=== PATIENT | male | born 1965 | race Two or more races ===

== ENCOUNTER 2019-12-11 20:29 | Inpatient (IN) | payer MEDICAID ==
[~2019-12-11] VITALS: Ht 162.6 cm; Wt 67.4 kg
[2019-12-11 22:09] LABS: Basophils # (auto) 0.2 10 ^3/uL (0-0.2); Basophils % (auto) 1.2 % (0.0-2.0); Eosinophils # (auto) 0 10 ^3/uL (0-0.8); Eosinophils % (auto) 0.1 % (0.0-7.0); Hematocrit 46.7 % (41.0-53.0); Hemoglobin 16.5 g/dL (13.5-17.5); Lymphocytes # (auto) 1.7 10 ^3/uL (0.4-5.4); Lymphocytes % (auto) 11.1 % (10.0-50.0); Mean Corpuscular Hgb Conc. 35.3 g/dL (32.0-36.0); Mean Corpuscular Volume 87.8 fL (80.0-100.0); Monocytes # (auto) 0.7 10 ^3/uL (0-1.3); Monocytes % (auto) 4.3 % (0.0-12.0); Neutrophils # (auto) 12.8 10 ^3/uL (1.6-8.6); Neutrophils % (auto) 83.3 % (37.0-80.0); Nucleated Red Blood Cells % 0.2 %; Platelet Count (auto) 158 10^3/uL (140-450); Red Blood Cells 5.31 10^6/uL (4.5-5.90); Red Cell Distribution Width 12.9 % (11.8-14.3); White Blood Cell 15.4 10^3/uL (4.4-10.8)
[2019-12-11 22:26] LABS: INR 1.03 (0.9-1.15); Partial Thromboplastin Time 30.1 sec (23.0-31.2)
[2019-12-11 22:29] LABS: Albumin 4.5 g/dL (3.4-5.0); Amylase 88 U/L (25-115); Anion Gap 12 (5-15); BUN/Creatinine Ratio 36.3; Blood Alcohol < 3.0 mg/dL (0-5); Calcium 9.3 mg/dL (8.5-10.1); Carbon Dioxide 20 mmol/L (21-32); Chloride 90 mmol/L (98-107); GFR African American 38 mL/min; GFR Non-African American 31 mL/min; Lipase 125 U/L (73-393); Potassium 5.5 mmol/L (3.5-5.1); Sodium 122 mmol/L (136-145)
[2019-12-11] MEDS ORDERED: PANTOPRAZOLE 40 MG/10 ML VIAL INJ IV ONE (22:30)
[2019-12-11 22:33] LABS: Alanine Aminotransferase 114 U/L (16-61); Alkaline Phosphatase 113 U/L (45-117); Aspartate Aminotransferase 95 U/L (15-37); Bilirubin, Total 3.5 mg/dL (0.2-1.0); Total Protein 9.1 g/dL (6.4-8.2)
[2019-12-11 22:38] LABS: Blood Urea Nitrogen 85 mg/dL (7-18); Glucose 417 mg/dL (74-106)
[2019-12-11] MEDS ORDERED: LIDOCAINE VISCOUS 2% 15ML UD PO ONE (22:45)
[2019-12-11] MEDS ORDERED: ALUM & MAG HYDROX-SIMETH LIQ(MAALOX) 30 ML PO ONE (22:45)
[2019-12-11] MEDS ORDERED: DONNATAL 5ml ORAL Elix (BELLADONNA ALK-PHENOBARB) PO ONE (22:45)
[2019-12-12 03:26] LABS: Alanine Aminotransferase 84 U/L (16-61); Albumin 2.9 g/dL (3.4-5.0); Anion Gap 10 (5-15); Aspartate Aminotransferase 65 U/L (15-37); BUN/Creatinine Ratio 50.3; Blood Urea Nitrogen 76 mg/dL (7-18); Calcium 7.9 mg/dL (8.5-10.1); Carbon Dioxide 16 mmol/L (21-32); Chloride 102 mmol/L (98-107); GFR African American 62 mL/min; GFR Non-African American 51 mL/min; Glucose 300 mg/dL (74-106); Potassium 4.1 mmol/L (3.5-5.1); Sodium 128 mmol/L (136-145)
[2019-12-12 03:29] LABS: Alkaline Phosphatase 80 U/L (45-117); Bilirubin, Total 2.8 mg/dL (0.2-1.0)
[2019-12-12] MEDS ORDERED: CIPROFLOXACIN 400MG/200ML 200 ML IV ONE (04:15)
[2019-12-12] MEDS ORDERED: metroNIDAZOLE 500MG/100ML 100 ML IV ONE (04:15)
[2019-12-12] MEDS ORDERED: ONDANSETRON HCL 4 MG/2 ML VIAL IV PRN (05:00)
[2019-12-12] MEDS ORDERED: DEXTROSE (50%) 50ML SYRG IV PRN (05:00)
[2019-12-12] MEDS ORDERED: MORPHINE SULF INJ 2 MG/ML SYRINGE 1ML IV PRN (05:00)
[2019-12-12] MEDS ORDERED: NITROGLYCERIN 0.4 MG SL TAB SL PRN (05:00)
[2019-12-12] MEDS: SODIUM CHLORIDE 0.9% 1,000 ML IV SCH ×2 (06:32→18:04)
[2019-12-12] MEDS: ACCU-CHEK COMFORT CURVE STRIP VI SCH ×4 (07:05→22:59)
[2019-12-12] MEDS: InsuLIN REG 1unit/0.01ml Soln (100units/ml) SC SCH ×4 (07:14→22:00)
[2019-12-12 07:15] LABS: Basophils # (auto) 0.1 10 ^3/uL (0-0.2); Basophils % (auto) 0.7 % (0.0-2.0); Eosinophils # (auto) 0.1 10 ^3/uL (0-0.8); Eosinophils % (auto) 0.8 % (0.0-7.0); Hematocrit 38.3 % (41.0-53.0); Hemoglobin 13.7 g/dL (13.5-17.5); Lymphocytes # (auto) 1.6 10 ^3/uL (0.4-5.4); Lymphocytes % (auto) 19.9 % (10.0-50.0); Mean Corpuscular Hemoglobin 31.3 pg (28.0-32.0); Mean Corpuscular Hgb Conc. 35.6 g/dL (32.0-36.0); Monocytes # (auto) 0.7 10 ^3/uL (0-1.3); Monocytes % (auto) 8.6 % (0.0-12.0); Neutrophils # (auto) 5.8 10 ^3/uL (1.6-8.6); Nucleated Red Blood Cells % 0.5 %; Platelet Count (auto) 97 10^3/uL (140-450); Red Blood Cells 4.36 10^6/uL (4.5-5.90); White Blood Cell 8.2 10^3/uL (4.4-10.8)
[2019-12-12 07:33] LABS: Albumin 3.5 g/dL (3.4-5.0); Calcium 8.3 mg/dL (8.5-10.1)
[2019-12-12 07:36] LABS: BUN/Creatinine Ratio 47.1
[2019-12-12 07:38] LABS: Bilirubin, Total 2.4 mg/dL (0.2-1.0); Total Protein 6.9 g/dL (6.4-8.2)
[2019-12-12 13:35] VITALS: BP 120/62
[2019-12-12 19:33] LABS: INR 0.98 (0.9-1.15); Partial Thromboplastin Time 26.4 sec (23.0-31.2)
[2019-12-12] MEDS: MORPHINE SULFATE 4 MG/ML SYR/VIAL IV PRN (20:12)
--- NOTE | 2019-12-12 20:24 | NUR ---
IV insertion IV access obtained, via clean sterile technique by inserting 18 gauge catheter at left forearm after 1 attempt. IV secured properly. No trauma to site. Patient tolerated well.
[2019-12-12 22:57] VITALS: BP 105/68
[2019-12-13] MEDS: SODIUM CHLORIDE 0.9% 1,000 ML IV SCH ×3 (02:00→22:00)
[2019-12-13 05:16] VITALS: BP 112/75
[2019-12-13] MEDS: ACCU-CHEK COMFORT CURVE STRIP VI SCH ×4 (06:16→22:00)
[2019-12-13] MEDS: InsuLIN REG 1unit/0.01ml Soln (100units/ml) SC SCH ×4 (06:17→22:00)
--- NOTE | 2019-12-13 07:30 | NUR ---
Opening Shift Note Assumed care of patient, awake and alert. No S/S of distress/SOB, reports abdominal pain at 6. Instructed on POC and to call for assist PRN, will continue to monitor for changes Q1hr and PRN.
[2019-12-13 09:00] VITALS: BP 121/76
[2019-12-13] MEDS ORDERED: ceFAZolin 1GM/50ML 50 ML IV ONE (09:01)
[2019-12-13] MEDS ORDERED: MIDAZOLAM HCL 1MG/1ML-2 ML VIAL ONE (09:09)
[2019-12-13] MEDS ORDERED: HYDROmorphone HCL 2 MG/ML VL ONE (09:09)
[2019-12-13] MEDS ORDERED: fentaNYL CITRATE 100 MCG/2 ML VL ONE (09:09)
[2019-12-13] MEDS ORDERED: PROPOFOL 10 MG/ML 20 ML IV ONE (09:10)
[2019-12-13] MEDS ORDERED: GLYCOPYRROLATE 0.2 MG/ML 1ML VIAL ONE ×2 (09:10→10:03)
[2019-12-13] MEDS ORDERED: LIDOCAINE HCL 100 MG/5ML (2%) SYRG INJ IV ONE (09:10)
[2019-12-13] MEDS ORDERED: ONDANSETRON HCL 4 MG/2 ML VIAL ONE (09:10)
[2019-12-13] MEDS ORDERED: ROCURONIUM 10MG/ML 10ML VIAL IV ONE (09:10)
[2019-12-13] MEDS ORDERED: DexAMETHasone SOD PHOS 10MG/1ML VIAL INJ ONE (09:10)
[2019-12-13] MEDS ORDERED: KETOROLAC TROMETH 30 MG/ML 1ML VIAL ONE (09:10)
[2019-12-13] MEDS ORDERED: PHENYLEPHRINE HCL 10 MG/ML VL IV ONE (09:30)
[2019-12-13] MEDS ORDERED: POVIDONE IODINE 10 % TOPICAL OINT 30GM TOP ONE (09:58)
[2019-12-13] MEDS ORDERED: NEOSTIGMINE 1 MG/ML INJ (10mg/10ML VIAL) ONE (10:03)
[2019-12-13] MEDS ORDERED: ONDANSETRON HCL 4 MG/2 ML VIAL IV PRN ×2 (10:15→10:45)
[2019-12-13 10:16] LABS: Albumin 3.4 g/dL (3.4-5.0); Potassium 4.1 mmol/L (3.5-5.1)
[2019-12-13 10:19] LABS: Bilirubin, Total 1.4 mg/dL (0.2-1.0); Total Protein 6.6 g/dL (6.4-8.2)
[2019-12-13 10:30] LABS: BUN/Creatinine Ratio 37.9
[2019-12-13] MEDS ORDERED: HYDROmorphone HCL 2 MG/ML VL IV PRN (10:45)
[2019-12-13] MEDS ORDERED: ACCU-CHEK COMFORT CURVE STRIP VI ONE (10:45)
--- NOTE | 2019-12-13 12:00 | NUR ---
Patient returned for recovery, vs stable, reports mild pain, x3 small incisions to abdomen, abdominal binder and stds in place, will continue to monitor.
[2019-12-13 13:00] VITALS: BP 108/74
[2019-12-13] MEDS: HYDROmorphone HCL 2 MG/ML VL IV PRN ×4 (14:20→23:24)
[2019-12-13] MEDS: ceFAZolin 1GM/50ML 50 ML IV SCH ×2 (15:16→22:00)
[2019-12-13] MEDS: metroNIDAZOLE 500MG/100ML 100 ML IV SCH ×2 (15:16→21:09)
[2019-12-13 15:25] LABS: Basophils % (auto) 1.3 % (0.0-2.0); Eosinophils # (auto) 0.1 10 ^3/uL (0-0.8); Eosinophils % (auto) 7.5 % (0.0-7.0); Lymphocytes # (auto) 1.46 10 ^3/uL (0.4-5.4); Lymphocytes % (auto) 27.3 % (10.0-50.0); Monocytes % (auto) 7.5 % (0.0-12.0); Neutrophils # (auto) 3.37 10 ^3/uL (1.6-8.6); Nucleated Red Blood Cells % 0.7 %; White Blood Cell 5.4 10^3/uL (4.4-10.8)
[2019-12-13 15:26] LABS: Basophils # (auto) 0.04 10 ^3/uL (0-0.2); Hematocrit 43.2 % (41.0-53.0); Hemoglobin 14.8 g/dL (13.5-17.5); Mean Corpuscular Hemoglobin 30.5 pg (28.0-32.0); Mean Corpuscular Hgb Conc. 34.3 g/dL (32.0-36.0); Mean Corpuscular Volume 89.1 fL (80.0-100.0); Platelet Count (auto) 86 10^3/uL (140-450); Red Blood Cells 4.85 10^6/uL (4.5-5.90); Red Cell Distribution Width 12.7 % (11.8-14.3)
[2019-12-13] MEDS ORDERED: ACET-1156 PO (16:16)
[2019-12-13] MEDS ORDERED: HYDR-4833 PO (16:16)
--- NOTE | 2019-12-13 16:37 | NUR ---
SPOKE WITH DR TREVINO REGARDING DISCHARGE, PATIENT IS HOMELESS AND WILL NEED A GROUP HOME PLACEMENT, PATIENTS VS ARE STABLE, CONTINUES TO HAVE MODERATE PAIN TO ABDOMEN, BOWEL SOUNDS ARE HYPOACTIVE TOLERATING CLEAR LIQUID. AWAITING CALL BACK FROM CM REGARDING PLACEMENT AND DR SERNA FOR CLEARANCE. WILL CONTINUE TO MONITOR.
--- NOTE | 2019-12-13 16:44 | NUR ---
SPOKE WITH CHANTALE ALCANTARA REGARDING DISCHARGE TO LONGTERM, SHE STATES SHE WILL MAKE INQUIRES.
[2019-12-13 17:00] VITALS: BP 114/74
--- NOTE | 2019-12-13 20:00 | NUR ---
Opening Shift Note Assumed care of patient, awake and alert. No S/S of distress. Patient complains of abdominal incisional pain. Abdominal non-distended. Patient reports passing flatus. Instructed on POC and to call for assist PRN, will continue to monitor for changes Q1hr and PRN. Bed in low position and call light in reach.
--- NOTE | 2019-12-13 21:08 | NUR ---
Patient complains of incisional abdominal pain 09/16. Medicated with Dilaudid 0.5 mg IVP.
--- NOTE | 2019-12-13 23:15 | NUR ---
Dr. Esther Navarrete in to see patient. Plans for possible discharge, 12/14/19 after Production Mechanic consult due to homeless status and clearance from Dr. Calixto
--- NOTE | 2019-12-13 23:24 | NUR ---
Patient complains of incisional pain to abdomen. Medicated with Dilaudid 0.5 mg IVP.
[2019-12-14] MEDS: MORPHINE SULFATE 4 MG/ML SYR/VIAL IV PRN ×4 (02:03→20:14)
[2019-12-14] MEDS: metroNIDAZOLE 500MG/100ML 100 ML IV SCH ×3 (04:40→20:54)
[2019-12-14 05:00] VITALS: BP 131/69
[2019-12-14 05:25] LABS: Basophils # (auto) 0 10 ^3/uL (0-0.2); Basophils % (auto) 0.3 % (0.0-2.0); Eosinophils # (auto) 0 10 ^3/uL (0-0.8); Hematocrit 37.6 % (41.0-53.0); Lymphocytes # (auto) 0.9 10 ^3/uL (0.4-5.4); Lymphocytes % (auto) 9.8 % (10.0-50.0); Mean Corpuscular Hemoglobin 30.6 pg (28.0-32.0); Mean Corpuscular Hgb Conc. 34.4 g/dL (32.0-36.0); Mean Corpuscular Volume 88.8 fL (80.0-100.0); Monocytes # (auto) 0.6 10 ^3/uL (0-1.3); Neutrophils # (auto) 7.5 10 ^3/uL (1.6-8.6); Neutrophils % (auto) 82.9 % (37.0-80.0); Nucleated Red Blood Cells % 0.2 %; Platelet Count (auto) 89 10^3/uL (140-450); Red Blood Cells 4.24 10^6/uL (4.5-5.90); Red Cell Distribution Width 12.6 % (11.8-14.3)
--- NOTE | 2019-12-14 05:30 | NUR ---
Patient awake requesting something to eat. He also requested Medication for pain. I explained to patient his Dilaudid is available and Morphine will be due @ 0700. Patient requested to wait for Morphine.
[2019-12-14 05:40] LABS: Albumin 3.4 g/dL (3.4-5.0); Calcium 7.7 mg/dL (8.5-10.1); Potassium 4.4 mmol/L (3.5-5.1)
[2019-12-14] MEDS: ceFAZolin 1GM/50ML 50 ML IV SCH ×3 (05:42→20:54)
[2019-12-14 05:44] LABS: BUN/Creatinine Ratio 32.8; Bilirubin, Total 1.2 mg/dL (0.2-1.0); Total Protein 6.5 g/dL (6.4-8.2)
[2019-12-14] MEDS: InsuLIN REG 1unit/0.01ml Soln (100units/ml) SC SCH ×4 (06:40→21:18)
[2019-12-14] MEDS: ACCU-CHEK COMFORT CURVE STRIP VI SCH ×4 (06:41→20:54)
[2019-12-14] MEDS: SODIUM CHLORIDE 0.9% 1,000 ML IV SCH ×2 (08:00→18:31)
[2019-12-14 09:00] VITALS: BP 131/75
--- NOTE | 2019-12-14 10:00 | NUR ---
DR SCHMIDT PAGED X2 FOR DIET CHANGE, AWAITING CALL BACK.
--- NOTE | 2019-12-14 12:00 | NUR ---
QUINTON KENYON PAGED REGARDING CUSTODIAL PLACEMENT, AWAILING CALL BACK, PATIENT NOTIFIED.
[2019-12-14 13:00] VITALS: BP 112/68
--- NOTE | 2019-12-14 15:22 | NUR ---
Nutrition Assessment Est energy needs 4936-5379 kcal (25-30 kcal/kg BW 67.4kg) Est protein needs 54-67g (0.8-1g/kg BW 67.4kg) Tala hernandez. Addendum: 12/14/19 at [address] Amended: Links added.
--- NOTE | 2019-12-14 16:00 | NUR ---
SPOKE WITH FUENTES MULTIPLE TIME REGARDING SENIOR CARE PLACEMENT, PATIENT STATES HIS ID IS IN INPOUND AND CANT GET IT OUT UNTIL SUNDAY. PER CM PATIENT NEEDS I.D TO ENTER SENIOR CARE AND HAVE A CLEAN DRUG TEST, I EXPLAINED THAT THE PATIENT HAS RECEIVED PAIN MEDICATIONS AND IS CURRENTLY ON PROBATION , CM STATES SHE WILL CALL THE SENIOR CARE AND SEE WHAT CAN BE DONE, AWAITING CALL BACK.
[2019-12-14 17:00] VITALS: BP 112/73
--- NOTE | 2019-12-14 17:50 | NUR ---
SPOKE WITH CM, NO AVAILABLE SPACE AT A GROUP HOME TODAY, PATIENT HAS NO FAMILY OR FRIENDS HE COULD STAY WITH, CM WILL CONTINUE TO CHECK AVAILABILITY.
--- NOTE | 2019-12-14 17:51 | NUR ---
[id number] - Contacted the following shelters [facility] at [phone] and was told they are only accepting females with children, [facility] at [phone] not accepting anyone from local medical facilities and [facility] at [phone] not accepting anyone at this time. I informed nurse (Cydney) of the above information.
--- NOTE | 2019-12-14 17:58 | NUR ---
PATIENT DOES HAVE PHONE NUMBER FOR HIS PROBATION MONITOR, BUT THEY ARE ONLY AVAILABLE M-F, PATIENT STATES HE WILL CALL THEM TOMORROW TO SEE IF HE COULD GO [place] IF A GROUP HOME BECAME AVAILABLE.
--- NOTE | 2019-12-14 19:40 | NUR ---
OPENING NOTE Received report from day shift RN. Patient is A&O X's 4 with no s/s of distress and reports pain 7/10 to incisions on abdomen. Dressings are C/D/I. Abdominal binder in place. Will medicate for pain. Educated patient on POC and to use call light when in need of any assistance. Patient verbalized understanding. Bed is in lowest/locked position with side rails up X's 2 and call light is within reach of patient. Will continue care.
[2019-12-14 22:00] VITALS: BP 116/65
[2019-12-15] MEDS: MORPHINE SULFATE 4 MG/ML SYR/VIAL IV PRN (01:17)
--- NOTE | 2019-12-15 01:55 | NUR ---
PAIN REASSESSMENT Patient shows no s/s of discomfort and resting in bed. Will continue care
[2019-12-15] MEDS: SODIUM CHLORIDE 0.9% 1,000 ML IV SCH (04:00)
[2019-12-15] MEDS: metroNIDAZOLE 500MG/100ML 100 ML IV SCH (04:34)
[2019-12-15 05:00] VITALS: BP 148/78
[2019-12-15] MEDS: InsuLIN REG 1unit/0.01ml Soln (100units/ml) SC SCH (05:55)
[2019-12-15] MEDS: ceFAZolin 1GM/50ML 50 ML IV SCH (05:57)
[2019-12-15] MEDS: ACCU-CHEK COMFORT CURVE STRIP VI SCH (05:58)
[2019-12-15 09:00] VITALS: BP 136/76
--- NOTE | 2019-12-15 09:31 | NUR ---
AMA Note BEATRICE CANTOR states they want to leave the hospital Against Medical Advice (AMA). Patient encouraged to stay for placement. Lizzie Navarrete MD notified of patient's wishes. Patient advised of the risks and benefits of leaving AMA. Patient verbalized understanding. Patient instructed to schedule a follow up appointment with doctor Calixto and PCP. Patient encouraged to return to the ER if symptoms do not improve or worsen.
[2019-12-16 13:16] LABS: Hepatitis A Ab IgM Negative; Hepatitis B Core IgM Negative; Hepatitis B Surface Antigen Negative (Negative)
[2019-12-16 13:21] LABS: Hepatitis C Antibody Positive (Negative)
== END 2019-12-15 09:31 | disposition left against medical advice (07) | DRG 263 ==
LOC: EDBD 20:29 → ER 20:37 → TELE 20:38 → TELE-WESTW 12-12 12:32
PROVIDERS: ADMIT Nurse Practitioner; ATTEND Hospitalist
PROC: 0FT44ZZ Resection of Gallbladder, Percutaneous Endoscopic Approach (ICD-10-PCS; principal; 2019-12-13 09:10)
DX: K80.12 Calculus of gallbladder with acute and chronic cholecystitis without obstruction (principal); N17.0 Acute kidney failure with tubular necrosis; I31.9 Disease of pericardium, unspecified; R79.89 Other specified abnormal findings of blood chemistry; Z91.14 Patient's other noncompliance with medication regimen; E11.65 Type 2 diabetes mellitus with hyperglycemia; Z53.29 Procedure and treatment not carried out because of patient's decision for other reasons; D72.829 Elevated white blood cell count, unspecified
CPT/HCPCS: 36415; 36600; 71045; 74176; 76705; 80053; 80074; 80320; 82150; 82247; 82805; 82962; 83605; 83690; 83735; 84484; 85025; 85379; 85610; 85730; 86850; 86900; 86901; 87040; 93005; C9113; G0378; J0690; J1100; J1815; J1885; J2250; J2405; J2704; J3490